=== PATIENT | female | born 1970 | race Caucasian/White ===

== ENCOUNTER 2016-08-14 14:24 | Emergency (ER) | payer MEDICAID ==
[~2016-08-14] VITALS: Ht 170.2 cm; Wt 99.8 kg
[~2016-08-14 14:24] MED LIST: FLUO10CA65 PO; LAM100 PO; LORA-259 PO; OMEP20CA4 PO; SER100 PO; VIS25 PO; XANAX
[2016-08-14 14:43] VITALS: BP 118/74; PULSE 107; RESP 20; RESP 22; TEMP 97; O2SAT 96
[2016-08-14 17:04] VITALS: BP 101/65; PULSE 90; RESP 18; TEMP 97; O2SAT 96
== END 2016-08-14 17:03 | disposition home or self-care (01) ==
LOC: SED 14:24
DX: J40 Bronchitis, not specified as acute or chronic (principal); F31.9 Bipolar disorder, unspecified; Z88.5 Allergy status to narcotic agent; Z87.59 Personal history of other complications of pregnancy, childbirth and the puerperium; Z90.710 Acquired absence of both cervix and uterus
CPT/HCPCS: 71010; 99283

== ENCOUNTER 2017-08-12 08:04 | Emergency (ER) | payer MEDICAID ==
[~2017-08-12] VITALS: Ht 170.2 cm; Wt 104.3 kg
[~2017-08-12 08:04] MED LIST changes: -LORA-259 PO; -OMEP20CA4 PO; -VIS25 PO; -XANAX
[2017-08-12 08:09] VITALS: BP_SYST 130
[2017-08-12 09:00] LABS: HEMATOCRIT 34.3 % (36-48); HEMOGLOBIN 10.6 g/dL (12.0-16.0); MEAN CORPUSCULAR HEMOGLOBIN 21 pg (27-31); MEAN CORPUSCULAR HGB CONC 31 % (32-36); MEAN CORPUSCULAR VOLUME 69 fL (79.0-98.0); PLATELET COUNT (AUTO) 272 K/uL (130-430); RED CELL DISTRIBUTION WIDTH 18.1 % (9.0-15.0); WHITE BLOOD COUNT (AUTO) 5.8 K/uL (4.8-10.8)
[2017-08-12 09:04] LABS: CALCIUM 9.1 mg/dL (8.4-11.0); CREATININE 0.79 mg/dL (0.55-1.30); POTASSIUM 3.6 mmol/L (3.5-5.1)
[2017-08-12 09:07] LABS: INR 0.9 (0.8-1.2); PROTHROMBIN TIME 9.3 SECS (9.5-12.5)
[2017-08-12 09:09] LABS: ALBUMIN 3.6 g/dL (3.4-4.8); TOTAL BILIRUBIN 0.2 mg/dL (0.0-1.0)
[2017-08-12] MEDS ORDERED: KETOROLAC TROMETHAMINE 60 MG/2 ML VIAL IM ONE (09:30)
[2017-08-12] MEDS ORDERED: KETOROLAC TROMETHAMINE 30 MG VIAL IVP ONE (09:30)
[2017-08-12 09:41] LABS: BILIRUBIN,URINE NEGATIVE (NEGATIVE); BLOOD, URINE NEGATIVE (NEGATIVE); CLARITY/URINE SL HAZY (CLEAR); COLOR,URINE YELLOW (YELLOW); GLUCOSE,URINE NEGATIVE (NEGATIVE); KETONES,URINE NEGATIVE (NEGATIVE); LEUKOCYTE ESTERASE ,URINE 1+ (NEGATIVE); NITRITE, URINE POSITIVE (NEGATIVE); PH,URINE 6.5 (5.0-8.0); PROTEIN URINE NEGATIVE (NEGATIVE); UROBILINOGEN,URINE 0.2 (0.2-1.0)
[2017-08-12 09:50] VITALS: BP_SYST 124
[2017-08-12 09:50] LABS: BACTERIA,URINE MANY /HPF (None Seen); RBC,URINE 0-3 /HPF (0-3)
[2017-08-12 09:51] LABS: MUCUS,URINE 1+ /LPF (None Seen)
[2017-08-12 11:06] LABS: EOSINOPHILS % (AUTO) 3.3 % (0.0-4.0); LYMPHOCYTES % (AUTO) 19.9 % (20.5-51.5); MONOCYTES % (AUTO) 8.3 % (1.7-9.3); NEUTROPHILS % (AUTO) 67.6 % (40.0-70.0)
[2017-08-12 11:07] LABS: BASOPHILS # (AUTO) 0.1 K/uL (0.0-0.2); BASOPHILS % (AUTO) 0.9 % (0.0-2.0); EOSINOPHILS # (AUTO) 0.2 K/uL (0.0-0.4); LYMPHOCYTES # (AUTO) 1.1 K/uL (1.0-5.5); MONOCYTES # (AUTO) 0.5 K/uL (0.0-1.0); NEUTROPHILS # (AUTO) 3.8 K/uL (1.8-7.7)
== END 2017-08-12 09:50 | disposition home or self-care (01) ==
LOC: SED 08:04
DX: M94.0 Chondrocostal junction syndrome [Tietze] (principal); F32.9 Major depressive disorder, single episode, unspecified; Z88.5 Allergy status to narcotic agent
CPT/HCPCS: 36415; 71046; 80053; 80061; 81000; 81025; 83880; 84484; 85007; 85027; 85379; 85610; 85730; 87086; 87186; 93005; 96374; 99285; J1885

== ENCOUNTER 2017-08-29 12:11 | Emergency (ER) | payer MEDICAID ==
[~2017-08-29] VITALS: Ht 170.2 cm; Wt 102.1 kg
[2017-08-29 12:11] VITALS: BP_SYST 147
[2017-08-29] MEDS ORDERED: KETOROLAC TROMETHAMINE 60 MG/2 ML VIAL IM ONE (12:45)
[2017-08-29 13:55] VITALS: BP_SYST 132
== END 2017-08-29 13:55 | disposition home or self-care (01) ==
LOC: SED 12:11
DX: M54.2 Cervicalgia (principal); M54.5 Low back pain; F32.9 Major depressive disorder, single episode, unspecified; Z88.5 Allergy status to narcotic agent; Z90.49 Acquired absence of other specified parts of digestive tract; Z90.710 Acquired absence of both cervix and uterus; V49.49XA Driver injured in collision with other motor vehicles in traffic accident, initial encounter; Y93.89 Activity, other specified; Y92.410 Unspecified street and highway as the place of occurrence of the external cause; Y99.8 Other external cause status
CPT/HCPCS: 72050; 72100; 96372; 99284; J1885

== ENCOUNTER 2018-03-17 13:15 | Emergency (ER) | payer MEDICAID ==
[~2018-03-17] VITALS: Ht 170.2 cm; Wt 108.9 kg
[~2018-03-17 13:15] MED LIST changes: -FLUO10CA65 PO; +PRO10 PO
[2018-03-17 13:18] VITALS: BP_SYST 122
[2018-03-17] MEDS ORDERED: LORazepam 1 MG TABLET PO ONE (13:45)
[2018-03-17 14:08] LABS: CALCIUM 9.3 mg/dL (8.4-11.0); CREATININE 0.92 mg/dL (0.55-1.30); POTASSIUM 3.6 mmol/L (3.5-5.1)
[2018-03-17 14:12] LABS: HEMATOCRIT 31.4 % (36-48); HEMOGLOBIN 9.5 g/dL (12.0-16.0); MEAN CORPUSCULAR HEMOGLOBIN 20 pg (27-31); MEAN CORPUSCULAR HGB CONC 30 % (32-36); MEAN CORPUSCULAR VOLUME 67 fL (79.0-98.0); PLATELET COUNT (AUTO) 244 K/uL (130-430); RED BLOOD CELL COUNT(AUTO) 4.73 MIL/uL (4.2-6.2); RED CELL DISTRIBUTION WIDTH 18.9 % (9.0-15.0); WHITE BLOOD COUNT (AUTO) 7.5 K/uL (4.8-10.8)
[2018-03-17 14:14] LABS: ALBUMIN 3.9 g/dL (3.4-4.8); TOTAL BILIRUBIN 0.4 mg/dL (0.0-1.0)
[2018-03-17 14:48] LABS: BAND % (MANUAL) 6 % (0-6); BASOPHILS % (MANUAL) 0 % (0-2); EOSINOPHILS % (MANUAL) 1 % (0-7); LYMPHOCYTES % (MANUAL) 23 % (20-46); MONOCYTES % (MANUAL) 3 % (0-11)
[2018-03-17 15:20] VITALS: BP_SYST 122
== END 2018-03-17 15:19 | disposition home or self-care (01) ==
LOC: SED 13:15
DX: F41.9 Anxiety disorder, unspecified (principal); R06.02 Shortness of breath; D64.9 Anemia, unspecified; Z88.6 Allergy status to analgesic agent; Z79.899 Other long term (current) drug therapy
CPT/HCPCS: 36415; 71045; 80053; 85007; 85027; 93005; 99285

== ENCOUNTER 2018-07-15 07:46 | Emergency (ER) | payer MEDICAID ==
[~2018-07-15] VITALS: Ht 170.2 cm; Wt 99.8 kg
[2018-07-15 07:48] VITALS: BP_SYST 117
[2018-07-15] MEDS ORDERED: LORazepam 1 MG TABLET PO ONE (09:00)
[2018-07-15 10:47] VITALS: BP_SYST 113
== END 2018-07-15 10:45 | disposition home or self-care (01) ==
LOC: SED 07:46
DX: F41.9 Anxiety disorder, unspecified (principal); F32.9 Major depressive disorder, single episode, unspecified; F31.9 Bipolar disorder, unspecified; Z88.6 Allergy status to analgesic agent; Z79.899 Other long term (current) drug therapy
CPT/HCPCS: 99283

== ENCOUNTER 2018-09-20 07:59 | Emergency (ER) | payer MEDICAID ==
[~2018-09-20] VITALS: Ht 170.2 cm; Wt 97.5 kg
[2018-09-20 08:08] VITALS: BP_SYST 163
[2018-09-20] MEDS ORDERED: KETOROLAC TROMETHAMINE 60 MG/2 ML VIAL IM ONE (08:30)
[2018-09-20 09:34] LABS: HEMOGLOBIN 10.2 g/dL (12.0-16.0); LYMPHOCYTES % (AUTO) 19.8 % (20.5-51.5); MEAN CORPUSCULAR HEMOGLOBIN 21 pg (27-31); MEAN CORPUSCULAR HGB CONC 31 % (32-36); MEAN CORPUSCULAR VOLUME 67 fL (79.0-98.0); MONOCYTES % (AUTO) 6.8 % (1.7-9.3); NEUTROPHILS % (AUTO) 70.1 % (40.0-70.0); PLATELET COUNT (AUTO) 238 K/uL (130-430); RED BLOOD CELL COUNT(AUTO) 4.91 MIL/uL (4.2-6.2); RED CELL DISTRIBUTION WIDTH 20.8 % (9.0-15.0); WHITE BLOOD COUNT (AUTO) 6.9 K/uL (4.8-10.8)
[2018-09-20 09:35] LABS: BASOPHILS # (AUTO) 0.1 K/uL (0.0-0.2); BASOPHILS % (AUTO) 1.1 % (0.0-2.0); EOSINOPHILS # (AUTO) 0.1 K/uL (0.0-0.4); EOSINOPHILS % (AUTO) 2.2 % (0.0-4.0); LYMPHOCYTES # (AUTO) 1.4 K/uL (1.0-5.5); MONOCYTES # (AUTO) 0.5 K/uL (0.0-1.0); NEUTROPHILS # (AUTO) 4.8 K/uL (1.8-7.7)
[2018-09-20 09:48] LABS: INR 0.9 (0.8-1.2)
[2018-09-20 09:53] LABS: CALCIUM 7.9 mg/dL (8.4-11.0); CREATININE 0.67 mg/dL (0.55-1.30); POTASSIUM 3.9 mmol/L (3.5-5.1)
[2018-09-20 09:58] LABS: ALBUMIN 3.2 g/dL (3.4-4.8); TOTAL BILIRUBIN 0.2 mg/dL (0.0-1.0)
[2018-09-20 10:17] VITALS: BP_SYST 160
== END 2018-09-20 10:17 | disposition home or self-care (01) ==
LOC: SED 07:59
DX: K85.90 Acute pancreatitis without necrosis or infection, unspecified (principal); F32.9 Major depressive disorder, single episode, unspecified; Z79.899 Other long term (current) drug therapy; Z88.6 Allergy status to analgesic agent
CPT/HCPCS: 36415; 74176; 80053; 82150; 83690; 84703; 85025; 85610; 85730; 96372; 99284; J1885

== ENCOUNTER 2018-09-22 20:59 | Inpatient (IN) | payer MEDICAID ==
[~2018-09-22] VITALS: Ht 170.2 cm; Wt 99.8 kg
[2018-09-22 21:05] VITALS: BP_SYST 147
[2018-09-22 21:53] LABS: WHITE BLOOD COUNT (AUTO) 9.4 K/uL (4.8-10.8)
[2018-09-22 21:54] LABS: EOSINOPHILS % (AUTO) 2.3 % (0.0-4.0); HEMATOCRIT 33.9 % (36-48); HEMOGLOBIN 10.6 g/dL (12.0-16.0); LYMPHOCYTES % (AUTO) 15.9 % (20.5-51.5); MEAN CORPUSCULAR HEMOGLOBIN 21 pg (27-31); MEAN CORPUSCULAR HGB CONC 31 % (32-36); MEAN CORPUSCULAR VOLUME 68 fL (79.0-98.0); MONOCYTES % (AUTO) 3.6 % (1.7-9.3); NEUTROPHILS % (AUTO) 77.2 % (40.0-70.0); PLATELET COUNT (AUTO) 286 K/uL (130-430); RED BLOOD CELL COUNT(AUTO) 5.02 MIL/uL (4.2-6.2); RED CELL DISTRIBUTION WIDTH 20.2 % (9.0-15.0)
[2018-09-22 21:55] LABS: BASOPHILS # (AUTO) 0.1 K/uL (0.0-0.2); EOSINOPHILS # (AUTO) 0.2 K/uL (0.0-0.4); LYMPHOCYTES # (AUTO) 1.5 K/uL (1.0-5.5); MONOCYTES # (AUTO) 0.3 K/uL (0.0-1.0); NEUTROPHILS # (AUTO) 7.2 K/uL (1.8-7.7)
[2018-09-22 22:00] LABS: CALCIUM 8.6 mg/dL (8.4-11.0); CREATININE 0.88 mg/dL (0.55-1.30); POTASSIUM 3.9 mmol/L (3.5-5.1)
[2018-09-22 22:08] LABS: ALBUMIN 3.4 g/dL (3.4-4.8); TOTAL BILIRUBIN 0.2 mg/dL (0.0-1.0)
[2018-09-22] MEDS ORDERED: KETOROLAC TROMETHAMINE 30 MG VIAL IVP ONE (23:45)
[2018-09-22] MEDS ORDERED: NACL 0.9% 1,000 ML IV ONE (23:45)
[2018-09-22] MEDS ORDERED: ONDANSETRON HCL 4 MG/2 ML VIAL IVP ONE (23:45)
[2018-09-23] MEDS ORDERED: THOR10 PO (01:53)
[2018-09-23] MEDS ORDERED: LAMO150T2 PO (01:53)
[2018-09-23 04:03] VITALS: BP_SYST 139
[2018-09-23] MEDS: D5/0.45 NS 1,000 ML IV SCH ×2 (04:31→14:03)
[2018-09-23] MEDS ORDERED: LORazepam 2 MG/ML VIAL IVP PRN (06:15)
[2018-09-23] MEDS ORDERED: KETOROLAC TROMETHAMINE 15 MG VIAL IVP PRN (06:15)
[2018-09-23] MEDS: KETOROLAC TROMETHAMINE 30 MG VIAL IVP PRN ×3 (06:41→21:19)
[2018-09-23 08:11] VITALS: BP_SYST 142
[2018-09-23 09:27] LABS: TRIGLYCERIDES 114 mg/dL (30-150)
[2018-09-23 10:17] LABS: HCG,QUANTITATIVE 0 mIU/ML (0-6)
[2018-09-23 11:23] VITALS: BP_SYST 130
[2018-09-23 15:32] VITALS: BP_SYST 143
[2018-09-23] MEDS ORDERED: LAMO5TAB3 PO (18:35)
[2018-09-23] MEDS ORDERED: TRAZ150T77 PO (18:35)
[2018-09-23] MEDS ORDERED: LORA10TA68 PO (18:35)
[2018-09-23] MEDS ORDERED: QUET200T PO (18:35)
[2018-09-23] MEDS ORDERED: traZODone HCL 50 MG TABLET (DESYREL) PO SCH (18:45)
[2018-09-23] MEDS ORDERED: QUEtiapine FUMARATE 100 MG TABLET PO SCH (21:00)
[2018-09-23] MEDS ORDERED: LamoTRIgine 100 MG TABLET PO SCH (21:00)
[2018-09-23 21:08] VITALS: BP_SYST 141
[2018-09-23] MEDS: ONDANSETRON HCL 4 MG/2 ML VIAL IVP PRN (23:04)
[2018-09-24] VITALS: BP_SYST 125
[2018-09-24] MEDS: D5/0.45 NS 1,000 ML IV SCH ×2 (00:28→10:23)
[2018-09-24 07:54] LABS: CALCIUM 8.2 mg/dL (8.4-11.0); CREATININE 0.66 mg/dL (0.55-1.30); POTASSIUM 4.1 mmol/L (3.5-5.1); TOTAL BILIRUBIN 0.3 mg/dL (0.0-1.0)
[2018-09-24 08:07] VITALS: BP_SYST 110
[2018-09-24] MEDS: KETOROLAC TROMETHAMINE 30 MG VIAL IVP PRN (08:12)
[2018-09-24] MEDS: ONDANSETRON HCL 4 MG/2 ML VIAL IVP PRN (08:12)
[2018-09-24 08:40] LABS: WHITE BLOOD COUNT (AUTO) 10.8 K/uL (4.8-10.8)
[2018-09-24 08:41] LABS: HEMATOCRIT 32.6 % (36-48); HEMOGLOBIN 10.3 g/dL (12.0-16.0); MEAN CORPUSCULAR HEMOGLOBIN 22 pg (27-31); MEAN CORPUSCULAR HGB CONC 32 % (32-36); MEAN CORPUSCULAR VOLUME 68 fL (79.0-98.0); PLATELET COUNT (AUTO) 261 K/uL (130-430); RED BLOOD CELL COUNT(AUTO) 4.78 MIL/uL (4.2-6.2); RED CELL DISTRIBUTION WIDTH 20.4 % (9.0-15.0)
[2018-09-24 08:42] LABS: BASOPHILS # (AUTO) 0.1 K/uL (0.0-0.2); BASOPHILS % (AUTO) 0.6 % (0.0-2.0); EOSINOPHILS # (AUTO) 0.1 K/uL (0.0-0.4); EOSINOPHILS % (AUTO) 0.8 % (0.0-4.0); LYMPHOCYTES # (AUTO) 0.9 K/uL (1.0-5.5); LYMPHOCYTES % (AUTO) 8.7 % (20.5-51.5); MONOCYTES # (AUTO) 0.6 K/uL (0.0-1.0); MONOCYTES % (AUTO) 5.3 % (1.7-9.3); NEUTROPHILS # (AUTO) 9.2 K/uL (1.8-7.7); NEUTROPHILS % (AUTO) 84.6 % (40.0-70.0)
[2018-09-24] MEDS ORDERED: LORATADINE 10 MG TABLET PO SCH (09:00)
[2018-09-24 11:22] VITALS: BP_SYST 146
[2018-09-24] MEDS ORDERED: HYDR-4272 PO (15:03)
[2018-09-24 15:12] VITALS: BP_SYST 132
[2018-09-24 15:17] VITALS: BP_SYST 146
== END 2018-09-24 13:20 | disposition home or self-care (01) | DRG 282 ==
LOC: SED 20:59 → SMU 09-23 03:41
PROVIDERS: ADMIT Preventive Medicine Preventive Medicine/Occupational Environmental Medicine; ATTEND Preventive Medicine Preventive Medicine/Occupational Environmental Medicine
DX: K85.90 Acute pancreatitis without necrosis or infection, unspecified (principal); E43 Unspecified severe protein-calorie malnutrition; D64.9 Anemia, unspecified; E83.52 Hypercalcemia; F31.9 Bipolar disorder, unspecified; I10 Essential (primary) hypertension; R73.9 Hyperglycemia, unspecified; K80.20 Calculus of gallbladder without cholecystitis without obstruction; Z88.5 Allergy status to narcotic agent; Z68.34 Body mass index [BMI] 34.0-34.9, adult; Z85.89 Personal history of malignant neoplasm of other organs and systems; Z90.49 Acquired absence of other specified parts of digestive tract
CPT/HCPCS: 36415; 74181; 80053; 82150-TC; 83690-TC; 84478-TC; 84702-TC; 84703; 85025; 96361; 96374; 96375; 99285; J1885; J2405; J7030

== ENCOUNTER 2021-02-10 18:09 | Emergency (ER) | payer MEDICAID ==
[~2021-02-10] VITALS: Ht 170.2 cm; Wt 104.3 kg
[~2021-02-10 18:09] MED LIST changes: +HYDR-4272 PO; -LAM100 PO; +LAMO5TAB3 PO; +LORA10TA68 PO; -PRO10 PO; +QUET200T PO; -SER100 PO; +TRAZ150T77 PO
[2021-02-10 18:20] VITALS: BP_SYST 117
--- NOTE | 2021-02-10 18:20 | NUR ---
PT TO REMAIN IN ER LOBBY UNTIL ER BED BECOMES AVAILABLE.
--- NOTE | 2021-02-10 18:25 | NUR ---
URINE SPECIMEN OBTAINED AND SENT TO LAB FOR ANALYSIS.
[2021-02-10 19:03] LABS: BILIRUBIN,URINE NEGATIVE (NEGATIVE); CLARITY/URINE CLOUDY (CLEAR); COLOR,URINE YELLOW (YELLOW); GLUCOSE,URINE NEGATIVE (NEGATIVE); KETONES,URINE TRACE (NEGATIVE); LEUKOCYTE ESTERASE ,URINE 2+ (NEGATIVE); NITRITE, URINE NEGATIVE (NEGATIVE); PROTEIN URINE 2+ (NEGATIVE); UROBILINOGEN,URINE 0.2 (0.2-1.0)
[2021-02-10 19:06] LABS: BLOOD, URINE TRACE (NEGATIVE)
[2021-02-10 19:15] LABS: BACTERIA,URINE MODERATE /HPF (None Seen); CALCIUM OXALATE CRYSTALS,UR 0-10 /HPF (None Seen); MUCUS,URINE None Seen /LPF (None Seen); WBC,URINE >100 /HPF (0-3)
--- NOTE | 2021-02-10 20:27 | NUR ---
Patient to ER bed 5 to gown for evaluation. Side rails up. Report given to JUAN PABLO Daniels.
--- NOTE | 2021-02-10 20:32 | NUR ---
ER Dr. Decker at bedside examining patient.
[2021-02-10] MEDS ORDERED: KETOROLAC TROMETHAMINE 60 MG/2 ML VIAL IM ONE (20:45)
[2021-02-10 20:52] LABS: BASOPHILS # (AUTO) 0.1 K/uL (0.0-0.2); BASOPHILS % (AUTO) 0.9 % (0.0-2.0); EOSINOPHILS # (AUTO) 0.1 K/uL (0.0-0.4); EOSINOPHILS % (AUTO) 1.1 % (0.0-4.0); HEMATOCRIT 38.1 % (36-48); HEMOGLOBIN 12.2 g/dL (12.0-16.0); LYMPHOCYTES # (AUTO) 1.8 K/uL (1.0-5.5); LYMPHOCYTES % (AUTO) 22.8 % (20.5-51.5); MEAN CORPUSCULAR HEMOGLOBIN 25 pg (27-31); MEAN CORPUSCULAR HGB CONC 32 % (32-36); MEAN CORPUSCULAR VOLUME 79 fL (79.0-98.0); MONOCYTES # (AUTO) 0.4 K/uL (0.0-1.0); MONOCYTES % (AUTO) 5.5 % (1.7-9.3); NEUTROPHILS # (AUTO) 5.5 K/uL (1.8-7.7); NEUTROPHILS % (AUTO) 69.7 % (40.0-70.0); PLATELET COUNT (AUTO) 211 K/uL (130-430); RED BLOOD CELL COUNT(AUTO) 4.81 MIL/uL (4.2-6.2); RED CELL DISTRIBUTION WIDTH 18.1 % (9.0-15.0)
--- NOTE | 2021-02-10 21:03 | NUR ---
Patient medicated per MD orders. Patient tolerated well, will reassess pain scale.
[2021-02-10 21:09] LABS: CREATININE 1.13 mg/dL (0.55-1.30); POTASSIUM 3.6 mmol/L (3.5-5.1)
[2021-02-10 21:11] LABS: PROTHROMBIN TIME 10.1 SECS (9.5-12.5)
[2021-02-10 21:22] LABS: ALBUMIN 3.8 g/dL (3.4-4.8); TOTAL BILIRUBIN 0.3 mg/dL (0.0-1.0)
[2021-02-10 21:40] LABS: C-REACTIVE PROTEIN QUANT 1.4 mg/dL (0-0.5)
[2021-02-10 22:16] VITALS: BP_SYST 116
--- NOTE | 2021-02-10 22:16 | NUR ---
Patient given written and verbal discharge instructions and verbalizes understanding. ER MD discussed with patient the results and treatment provided. Patient in stable condition. ID arm band removed. Rx of norco and motrin given. Patient educated on pain management and to follow up with PMD. Pain Scale 0/10. Opportunity for questions provided and answered. Medication side effect fact sheet provided.
== END 2021-02-10 22:16 | disposition home or self-care (01) ==
LOC: SED 18:09
DX: R10.9 Unspecified abdominal pain (principal); F31.9 Bipolar disorder, unspecified; Z79.899 Other long term (current) drug therapy
CPT/HCPCS: 36415; 74176; 76376; 80053; 81000; 82150; 83605; 83690; 84703; 85025; 85610; 85730; 86140; 87086; 96372; 99284; J1885

== ENCOUNTER 2021-05-18 13:08 | Emergency (ER) | payer MEDICAID, SELFPAY ==
[~2021-05-18] VITALS: Ht 170.2 cm; Wt 104.3 kg
[2021-05-18 13:08] VITALS: BP_SYST 141
[2021-05-18] MEDS ORDERED: METH-634 PO (14:59)
[2021-05-18] MEDS ORDERED: KETOROLAC TROMETHAMINE 15 MG VIAL IM ONE (15:00)
[2021-05-18 15:46] VITALS: BP_SYST 141
== END 2021-05-18 15:47 | disposition home or self-care (01) ==
LOC: SED 13:08
DX: R05.9 Cough, unspecified (principal); M79.18 Myalgia, other site; R07.9 Chest pain, unspecified; Z79.899 Other long term (current) drug therapy; Z20.822 Contact with and (suspected) exposure to COVID-19
CPT/HCPCS: 71045; 87426; 93005; 96372; 99285; J1885; 36415

== ENCOUNTER 2022-11-21 19:03 | Emergency (ER) | payer OTHER, MEDICAID ==
[~2022-11-21] VITALS: Ht 170.2 cm; Wt 108.9 kg
[~2022-11-21 19:03] MED LIST changes: +METH-634 PO
--- NOTE | 2022-11-21 19:15 | NUR ---
Patient triaged and placed in ER bed 1. Bed placed in lowest position and side rails up. Report given to PREET ALMEIDA for continuity of care. Instructed patient to notify ED staff for any changes in condition or worsening of symptoms while waiting to be seen by a provider. Patient verbalized understanding.
[2022-11-21 19:16] VITALS: BP_SYST 133
--- NOTE | 2022-11-21 19:32 | NUR ---
Dr. Staley is at bedside examining the patient.
--- NOTE | 2022-11-21 19:50 | NUR ---
PT PREENTS TO ED WITH RIGHT FACIAL NUMBNESS LEFT FACIAL PAIN. PT C/O SALIVA LEAKING, PT STATED IT STARTED YESTERDAY. CONNECTED TO VS MONITOR, BED LOWEST POSITION SAFETY RAILS UP
--- NOTE | 2022-11-21 20:03 | NUR ---
PT TO CT
--- NOTE | 2022-11-21 20:09 | NUR ---
PT BACK FROM CT
[2022-11-21] MEDS ORDERED: predniSONE 20 MG TABLET PO ONE (20:45)
[2022-11-21] MEDS ORDERED: IBUPROFEN 800 MG TABLET PO ONE (20:45)
[2022-11-21] MEDS ORDERED: PRED20TA PO (20:53)
[2022-11-21] MEDS ORDERED: ACYC-133 PO (20:53)
[2022-11-21 21:19] VITALS: BP_SYST 133
--- NOTE | 2022-11-21 21:21 | NUR ---
Patient given written and verbal discharge instructions and verbalizes understanding. ER MD discussed with patient the results and treatment provided. Patient in stable condition. ID arm band removed. Rx of ACYCLOVIR AND PREDISONE given. Patient educated on pain management and to follow up with PMD. Opportunity for questions provided and answered. Medication side effect fact sheet provided.
== END 2022-11-21 21:21 | disposition home or self-care (01) ==
LOC: SED 19:03
DX: G51.0 Bell's palsy (principal); R20.0 Anesthesia of skin; Z79.899 Other long term (current) drug therapy
CPT/HCPCS: 99284; 70450; 76376; J7512